=== PATIENT | male | born 1950 | race Caucasian/White ===

== ENCOUNTER 2023-06-24 13:13 | Emergency (ER) | payer OTHER, SELFPAY ==
[2023-06-24 13:16] VITALS: BP 114/64; PULSE 97; RESP 16; TEMP 36.7; O2SAT 98; BMI 32.8
[2023-06-24 13:17] VITALS: BP 114/64; PULSE 102; O2SAT 98
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
[2023-06-24 13:30] VITALS: PULSE 93; RESP 24; O2SAT 99
[2023-06-24 13:34] LABS: Add Manual Diff / Slide Review NO; Basophils Absolute Auto 100 /uL (0-100); Basophils Percent Auto 0.5 % (0-2); Eosinophils Absolute Auto 200 /uL (0-450); Eosinophils Percent Auto 2.3 % (2-4); Hematocrit 47.3 % (41-53); Lymphocytes Absolute Auto 2400 /uL (1100-4500); Lymphocytes Percent Auto 22.6 % (25-40); Mean Corpuscular HGB Conc 33.8 % (30-36); Mean Corpuscular Hemoglobin 32.2 PG (26-34); Mean Corpuscular Volume 95.2 fL (80-100); Monocytes Absolute Auto 600 /uL (0-900); Monocytes Percent Auto 5.5 % (3-14); Neutrophils Absolute Auto 7300 /uL (1500-7000); Neutrophils Percent Auto 69.1 % (50-75); Platelet Count 198 X10^3/uL (150-400); Red Blood Cell Count 4.97 X10^6/uL (4.5-5.9); Red Cell Distribution Width 13.5 % (11.6-14.8); White Blood Cell Count 10.6 X10^3/uL (4.5-11.0)
[2023-06-24 13:44] LABS: Alanine Aminotransferase 17 IU/L (<50); Albumin 4.2 g/dL (3.5-5.0); Albumin Globulin Ratio 1.2 (1.0-2.8); Alkaline Phosphatase 55 U/L (38-126); Aspartate Aminotransferase 28 IU/L (17-59); BUN Creatinine Ratio 7.6 (6-22); Bilirubin Total 0.4 mg/dL (0.2-1.3); Blood Urea Nitrogen 8 mg/dL (9-20); Calcium 9.1 mg/dL (8.4-10.2); Carbon Dioxide 19 mmol/L (22-32); Chloride 102 mmol/L (98-107); Creatine Kinase 91 U/L (55-170); Estimated Glomerular Filt Rate > 60 mL/min (>60); Ethanol (ETOH) 220 mg/dL; Globulin 3.4 g/dL (1.7-4.1); Glucose 93 mg/dL (80-110); HEMOLYSIS 28 (0-50); Lipase 67 U/L (23-300); Potassium 4.4 mmol/L (3.4-5.1); Sodium 138 mmol/L (137-145); Total Protein 7.6 g/dL (6.3-8.2)
[2023-06-24 13:47] VITALS: BP 104/58; PULSE 99; RESP 21; O2SAT 95
[2023-06-24 13:54] LABS: Troponin I < 0.012 ng/mL (0.01-0.034)
[2023-06-24 14:00] VITALS: BP 102/59; PULSE 96; RESP 16; O2SAT 95
[2023-06-24 14:30] VITALS: BP 104/66; PULSE 105; RESP 19; O2SAT 99
== END 2023-06-24 15:53 | disposition home or self-care (01) ==
PROVIDERS: Emergency Provider Emergency Medicine
DX: S60.412A Abrasion of right middle finger, initial encounter (principal); F10.129 Alcohol abuse with intoxication, unspecified; Y90.7 Blood alcohol level of 200-239 mg/100 ml; R07.9 Chest pain, unspecified; V89.2XXA Person injured in unspecified motor-vehicle accident, traffic, initial encounter
CPT/HCPCS: 70450; 71260; 72125; 74177; 80053; 80320; 82550; 83690; 84484; 85025; 93005; 93010; 99283; 99284